=== PATIENT | female | born 1995 | race Caucasian/White ===

== ENCOUNTER 2019-01-17 06:30 | Inpatient (IN) ==
[2019-01-17] MEDS ORDERED: ANCEF 1 GRAM IV PREMIX* 1 G/50 ML BAG IV ONE (06:38)
[2019-01-17] MEDS ORDERED: LR 1000 ML IV 1,000 ML ONE (06:38)
[2019-01-17] MEDS ORDERED: D5 1/2 NS 1000 ML 1,000 ML ONE (06:39)
[2019-01-17] MEDS ORDERED: D5 1/2 NS 1000 ML 1,000 ML IV SCH (06:52)
[2019-01-17] MEDS ORDERED: ANCEF VIAL 1 GRAM IVP ONE (06:52)
[2019-01-17] MEDS ORDERED: DILAUDID INJ ONE (06:58)
[2019-01-17] MEDS ORDERED: LR 1000 ML IV 1,000 ML IV ONE (07:02)
[2019-01-17] MEDS ORDERED: MARCAINE SPINAL ONE (07:02)
[2019-01-17 07:23] LABS: URIC ACID 3.7 mg/dL (2.6-6.0)
[2019-01-17 08:18] LABS: BILIRUBIN,URINE NEGATIVE (NEGATIVE); BLOOD/HEMOGLOBIN,URINE NEGATIVE (NEGATIVE); GLUCOSE, URINE NEGATIVE (NEGATIVE); KETONES,URINE NEGATIVE (NEGATIVE); LEUKOCYTE ESTERASE ,URINE NEGATIVE (NEGATIVE); NITRITES,URINE NEGATIVE (NEGATIVE); PH,URINE 6.5 (5.0 - 8.0); PROTEIN,URINE NEGATIVE (NEGATIVE); UROBILINOGEN,URINE 1+ (NORMAL)
[2019-01-17 08:19] LABS: APPEARANCE,URINE CLEAR (CLEAR); COLOR,URINE YELLOW (YELLOW)
[2019-01-17 08:25] LABS: BACTERIA,URINE TRACE /HPF (NEGATIVE); MUCUS,URINE FEW /HPF (NEGATIVE); RBC,URINE 0-2 /HPF (NONE SEEN); SQUAMOUS EPITHELIAL CELL,UR FEW /HPF (NEGATIVE)
[2019-01-17] MEDS ORDERED: D5 1/2 NS 1L W PITOCIN 20 UNITS/L 20 UNITS/1,000 ML BAG IV ONE (09:01)
[2019-01-17] MEDS ORDERED: PHENERGAN INJ 25 MG IM PRN (09:05)
[2019-01-17] MEDS ORDERED: BENADRYL INJ 50 MG VIAL IVP PRN ×2 (09:05→09:28)
[2019-01-17] MEDS ORDERED: DILAUDID INJ IVP PRN (09:05)
[2019-01-17] MEDS ORDERED: REGLAN INJ 10 MG VIAL IVP PRN ×2 (09:05→09:28)
[2019-01-17] MEDS ORDERED: ZOFRAN INJ 4 MG VIAL IVP PRN ×2 (09:05→09:28)
[2019-01-17] MEDS ORDERED: PERCOCET TAB 5/325 MG PO PRN (09:28)
[2019-01-17] MEDS ORDERED: ADACEL or BOOSTRIX TDaP VACCINE IM ONE (09:28)
[2019-01-17] MEDS ORDERED: NARCAN INJ IVP PRN (09:28)
[2019-01-17] MEDS ORDERED: MYLICON TAB 80 MG CHEW PO PRN (09:28)
[2019-01-17] MEDS ORDERED: D5 1/2 NS 1000 ML 1,000 ML with PITOCIN 20 UNITS IV SCH ×2 (10:00)
[2019-01-17] MEDS: TORADOL 30 MG VIAL IVP PRN ×2 (13:26→20:49)
[2019-01-17] MEDS ORDERED: ADACEL or BOOSTRIX TDaP VACCINE IM NR (13:30)
[2019-01-17] MEDS ORDERED: PITOCIN ONE (15:37)
[2019-01-17] MEDS ORDERED: DIPRIVAN VIAL ONE (15:37)
[2019-01-17] MEDS ORDERED: EPHEDRINE SULFATE INJ ONE (15:37)
[2019-01-17] MEDS ORDERED: XYLOCAINE 1 % (PLAIN) ONE (15:37)
[2019-01-17] MEDS: ZANTAC PO SCH (20:43)
[2019-01-18] MEDS: TORADOL 30 MG VIAL IVP PRN (06:13)
[2019-01-18 06:19] LABS: HEMATOCRIT 27.6 % (36.0-47.0); HEMOGLOBIN 9.3 g/dL (12.0-16.0)
[2019-01-18] MEDS: ZANTAC PO SCH ×2 (08:24→20:46)
[2019-01-18] MEDS: COLACE CAP 100 MG PO SCH ×2 (08:24→20:46)
[2019-01-18] MEDS: PRENATAL PLUS PO SCH (08:24)
[2019-01-18] MEDS: MOTRIN TAB 800 MG PO PRN ×2 (10:46→20:47)
[2019-01-18] MEDS: BACTROBAN CREAM TOP SCH ×2 (13:29→21:04)
[2019-01-18] MEDS: PERCOCET TAB 5/325 MG PO PRN ×2 (14:06→18:07)
[2019-01-19] MEDS: BACTROBAN CREAM TOP SCH (05:44)
[2019-01-19] MEDS: PRENATAL PLUS PO SCH (08:42)
[2019-01-19] MEDS: ZANTAC PO SCH (08:42)
[2019-01-19] MEDS: COLACE CAP 100 MG PO SCH (08:42)
[2019-01-19] MEDS: MOTRIN TAB 800 MG PO PRN (08:42)
[2019-01-19 10:25] VITALS: BP 113/70
== END 2019-01-19 11:00 | disposition home or self-care (01) | DRG 785 ==
LOC: LD 06:30 → MED/SURG 09:31
PROVIDERS: ADMIT Specialist; ATTEND Specialist
DX: Z30.2 Encounter for sterilization; O13.3 Gestational [pregnancy-induced] hypertension without significant proteinuria, third trimester; O34.211 Maternal care for low transverse scar from previous cesarean delivery; Z23 Encounter for immunization; Z3A.38 38 weeks gestation of pregnancy; Z37.0 Single live birth; N85.8 Other specified noninflammatory disorders of uterus
CPT/HCPCS: 36415; 80048; 81001; 83615; 84450; 84460; 84550; 85014; 85018; 85025; 85384; 85610; 85730; 86592; 86850; 86900; 86901; 90715; A4216; A4222; S0197; J0690; J1170; J1885; J2405; J2590; J2704; J3490; J7120; S5010